=== PATIENT | female | born 1940 | race Caucasian/White ===

== ENCOUNTER 2018-10-10 09:49 | Emergency (ER) | payer MEDICARE ==
[2018-10-10 10:36] VITALS: BP 132/84
--- NOTE | 2018-10-10 11:48 | UC ---
Respiratory Complaint HPI - HPI Summary HPI Summary: PT WITH 4 DAYS OF COUGH, CHEST CONGESTION, NASAL CONGESTION, SUBJECTIVE FEVER AND CHILLS. FEELS SOB. IN THE UC FOUND TO BE TACHYCARDIC IN THE 140s. HAS A H/O AFIB AND A PACEMAKER. DENIES CP OR PALPITATIONS. 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 - History of Current Complaint Chief Complaint: UCRespiratory Stated Complaint: URI Time Seen by Provider: 10/10/18 11:39 Hx Obtained From: Patient, Family/Pull Worker - DAUGHTER Onset/Duration: Gradual Onset, Lasting Days, Still Present Timing: Constant Severity Initially: Moderate Severity Currently: Moderate Pain Intensity: 8 Pain Scale Used: 0-10 Numeric Character: Cough: Productive Aggravating Factors: Nothing Alleviating Factors: Nothing Associated Signs And Symptoms: Positive: Dyspnea, Fever, Chills, URI, Nasal Congestion - Allergies/Home Medications Allergies/Adverse Reactions: Allergies Allergy/AdvReac Type Severity Reaction Status Date / Time amoxicillin [From Augmentin] Allergy Rash Verified 10/10/18 10:36 clavulanic acid Allergy Rash Verified 10/10/18 10:36 [From Augmentin] Home Medications: Home Medications Apixaban* [Eliquis*] 5 mg PO DAILY 10/10/18 [History Confirmed 10/10/18] PMH/Surg Hx/FS Hx/Imm Hx Endocrine History: Diabetes, Hypothyroidism Cardiovascular History: Hypertension, Pacemaker/ICD, Atrial Fibrillation - Surgical History Surgical History: Yes Surgery Procedure, Year, and Place: TONSILLECTOMY AGE 8,. 2009 RIGHT KNEE SURGERY, [place]. 2011 PACEMAKER INSERTION, [place]. SEVERAL CARDIAC CONVERSION, [place] - Family History Known Family History: Positive: Non-Contributory - Social History Alcohol Use: Occasionally Substance Use Type: None Smoking Status (MU): Never Smoked Tobacco Amount Used/How Often: 3/4 PPD Length of Time of Smoking/Using Tobacco: 20 YEARS When Did the Patient Quit Smoking/Using Tobacco: 08/2013 Review of Systems All Other Systems Reviewed And Are Negative: Yes Constitutional: Positive: Fever, Chills ENT: Positive: Nasal Discharge Respiratory: Positive: Shortness Of Breath, Cough Cardiovascular: Positive: Negative Gastrointestinal: Positive: Nausea Physical Exam Triage Information Reviewed: Yes Appearance: No Pain Distress, Well-Nourished, Ill-Appearing - SEEMS SOB AND MILDLY UNCOMFORTABLE Vital Signs: Initial Vital Signs Temp 98.4 F 10/10/18 10:31 Pulse 145 10/10/18 10:31 Resp 20 10/10/18 10:31 BP 132/84 10/10/18 10:31 Pulse Ox 97 10/10/18 10:31 Eyes: Positive: Conjunctiva Clear ENT: Positive: Hearing grossly normal, Pharynx normal, TMs normal Neck: Positive: Supple, Nontender, No Lymphadenopathy Respiratory: Positive: No respiratory distress, Decreased breath sounds - RIGHT SIDE, Plerual rub - RIGHT SIDE Cardiovascular: Positive: Tachycardia Abdomen Description: Positive: Soft Neurological: Positive: Alert Psychological: Positive: Age Appropriate Behavior Skin: Negative: Rashes UC Diagnostic Evaluation - Laboratory O2 Sat by Pulse Oximetry: 97 - EKG Cardiac Rate: Tachycardia - 144 BPM Cardiac Rhythm: Junctional: New - FLUTTER Ectopy: None Respiratory Course/Dx - Course Course Of Treatment: PT DECLINES AMBULANCE TRANSFER TO [facility]. STATES SHE WILL HAVE HER DAUGHTER DRIVE HER TO [facility]. ADVISED THAT SHE COULD BE RISKING WORSENING OF HER CONDITION THAT COULD POSE A THREAT TO HER LIFE, HEALTH AND MEDICAL SAFETY. SHE VERBALIZES UNDERSTANDING AND CONTINUES TO DECLINE TRANSFER. - Differential Dx/Diagnosis Provider Diagnosis: Lower respiratory infection, Atrial flutter by electrocardiogram Discharge - Sign-Out/Discharge Documenting (check all that apply): Patient Departure All imaging exams completed and their final reports reviewed: No Studies - Discharge Plan Condition: Guarded Disposition: AGAINST MEDICAL ADVICE Referrals: Evangelina Camacho MD [Primary Care Provider] - - Billing Disposition and Condition Condition: GUARDED Disposition: Against Medical Advice
== END 2018-10-10 12:07 | disposition left against medical advice (07) ==
LOC: UCEAST 09:49
DX: I48.92 Unspecified atrial flutter (principal); J22 Unspecified acute lower respiratory infection; Z95.0 Presence of cardiac pacemaker; I48.91 Unspecified atrial fibrillation; Z88.0 Allergy status to penicillin; Z88.8 Allergy status to other drugs, medicaments and biological substances; E11.9 Type 2 diabetes mellitus without complications; I11.0 Hypertensive heart disease with heart failure
CPT/HCPCS: 93005; 99202; G0463